=== PATIENT | male | born 1980 | race Caucasian/White ===

== ENCOUNTER 2017-07-16 16:52 | Inpatient (IN) | payer MEDICAID ==
[~2017-07-16] VITALS: Ht 172.7 cm; Wt 93.9 kg
[2017-07-16 17:54] LABS: BASOPHILS % (AUTO) 1.1 % (0.0-2.0); EOSINOPHILS # (AUTO) 0.08 K/uL (0.00-0.70); HEMOGLOBIN 14.2 g/dL (13.5-17.5); LYMPHOCYTES # (AUTO) 1.3 K/uL (1.0-4.8); LYMPHOCYTES % (AUTO) 15.4 % (22.0-44.0); MEAN CORPUSCULAR HEMOGLOBIN 27.2 pg (26.0-34.0); MEAN CORPUSCULAR HGB CONC 32.3 G/dL (31.0-37.0); MEAN CORPUSCULAR VOLUME 84 fL (80-100); MONOCYTES # (AUTO) 0.5 K/uL (0.1-1.0); MONOCYTES % (AUTO) 6.2 % (2.0-9.0); NEUTROPHILS # (AUTO) 6.7 K/uL (1.8-7.7); NEUTROPHILS % (AUTO) 76.5 % (40.0-70.0); PLATELET COUNT (AUTO) 394 K/uL (150-450); RED BLOOD CELL COUNT(AUTO) 5.21 MIL/uL (4.50-5.90); RED CELL DISTRIBUTION WIDTH 14.2 % (11.5-14.5)
[2017-07-16 18:05] LABS: ANION GAP 9 mmol/L (8-16); CARBON DIOXIDE 29 mmol/L (22-29); CHLORIDE 102 mmol/L (98-107); GLOMERULAR FILTR. RATE CALC > 60 mL/min (>60); GLUCOSE,RANDOM 97 mg/dL (70-110); POTASSIUM 3.9 mmol/L (3.5-5.1); SODIUM SERUM 140 mmol/L (136-145); UREA NITROGEN, BLOOD 10 mg/dL (7-18)
[2017-07-16 18:10] LABS: ALANINE AMINOTRANSFERASE 38 U/L (12-78); ALBUMIN 3.9 g/dL (3.4-5.0); ALKALINE PHOSPHATASE 79 U/L (46-116); ASPARTATE AMINOTRANSFERASE 28 U/L (15-37); BILIRUBIN,TOTAL 0.5 mg/dL (0.1-1.0); TOTAL PROTEIN, SERUM 7.3 g/dL (6.4-8.2)
[2017-07-16] MEDS ORDERED: PERTUSS(ACELL),DIPH,TET VAC/PF 0.5 ML VIAL IM ONE (18:30)
[2017-07-16] MEDS ORDERED: ZOLPIDEM TARTRATE 10 MG TABLET PO PRN (19:00)
[2017-07-16] MEDS ORDERED: HALOPERIDOL 5 MG TABLET PO PRN (19:00)
[2017-07-16] MEDS ORDERED: LORazepam 2 MG TABLET PO PRN (19:00)
[2017-07-16 23:39] VITALS: BP 124/60
[2017-07-17] MEDS ORDERED: INFLUENZA VIRUS VACCINE QVS 2017-18 (3YR+)/PF 60 MCG/0.5 ML SYRINGE IM ONE (03:30)
[2017-07-17 05:49] LABS: CHOL/HDL RATIO 3.6 (4.2-7.3)
[2017-07-17] MEDS ORDERED: BACITRACIN 28.4 GM OINTMENT TP SCH (09:00)
[2017-07-18 03:35] VITALS: BP 118/67
[2017-07-18 08:56] VITALS: BP 121/65
[2017-07-18] MEDS: FLUoxetine HCL 20 MG CAPSULE PO SCH (09:29)
[2017-07-18 16:26] VITALS: BP 119/68
[2017-07-19 05:36] VITALS: BP 120/82
[2017-07-19] MEDS: FLUoxetine HCL 20 MG CAPSULE PO SCH (08:24)
[2017-07-19 08:31] VITALS: BP 111/68
[2017-07-19 17:24] VITALS: BP 126/69
[2017-07-20 05:54] VITALS: BP 121/60
[2017-07-20 08:21] VITALS: BP 109/66
[2017-07-20] MEDS: FLUoxetine HCL 20 MG CAPSULE PO SCH (09:13)
[2017-07-20 19:11] VITALS: BP 116/60
[2017-07-21 00:25] VITALS: BP 109/62
[2017-07-21 08:07] VITALS: BP 116/77
[2017-07-21] MEDS: FLUoxetine HCL 20 MG CAPSULE PO SCH (08:41)
[2017-07-21] MEDS ORDERED: FLUO-191 PO (09:23)
== END 2017-07-21 12:26 | disposition home or self-care (01) | DRG 751 ==
LOC: EMS 16:54 → AHU 23:21 → B2S 07-17 22:22
PROVIDERS: ADMIT Psychiatry & Neurology Child & Adolescent Psychiatry; ATTEND Psychiatry & Neurology Child & Adolescent Psychiatry
DX: F32.2 Major depressive disorder, single episode, severe without psychotic features (principal); R45.851 Suicidal ideations; S61.511A Laceration without foreign body of right wrist, initial encounter; X58.XXXA Exposure to other specified factors, initial encounter; F41.9 Anxiety disorder, unspecified; Y93.89 Activity, other specified; Y92.89 Other specified places as the place of occurrence of the external cause; Y99.8 Other external cause status; Z82.49 Family history of ischemic heart disease and other diseases of the circulatory system
CPT/HCPCS: 90471; 90715; 99285; G0480